=== PATIENT | female | born 1975 | race Caucasian/White ===

== ENCOUNTER 2017-12-29 14:44 | Outpatient (RCR) | payer SELFPAY | END 2018-01-06 23:59 | LOC: NS 14:44 | PROVIDERS: Family Provider Family Medicine; PCP Family Medicine | DX: R69 Illness, unspecified (principal) | CPT/HCPCS: 97802; 97803; 99201; G0463 ==

== ENCOUNTER 2018-01-12 15:38 | Outpatient (RCR) | payer SELFPAY | END 2018-02-06 23:59 | LOC: NS 15:38 | PROVIDERS: Family Provider Family Medicine; PCP Family Medicine | DX: R69 Illness, unspecified (principal) | CPT/HCPCS: 97803 ==

== ENCOUNTER 2018-02-08 12:53 | Outpatient (RCR) | payer SELFPAY | END 2018-02-08 12:54 | disposition home or self-care (01) | LOC: NS 12:53 | PROVIDERS: Family Provider Family Medicine; PCP Family Medicine | DX: R69 Illness, unspecified (principal) | CPT/HCPCS: 97803 ==

== ENCOUNTER → 2018-05-10 15:48 | Outpatient (CLI) | payer OTHER, SELFPAY ==
--- NOTE | 2018-05-10 15:51 | RAD_ITS ---
STUDY: X-RAY - LEFT ANKLE REASON FOR EXAM: Female, 43 years old. Swelling and pain following a fall. TECHNIQUE: 3 view(s) of the ankle. COMPARISON: None. FINDINGS: Normal visualized distal tibia and fibula. Normal medial and lateral malleoli. Normal tibiotalar articulation and ankle mortise. Calcaneal spurs. The visualized subtalar, talonavicular, calcaneocuboid and tarsal articulations are normal. Soft tissue swelling. RAD/Ankle min 3 Views IMPRESSION: Soft tissue swelling. No acute abnormality is seen. Electronically Signed: Dean Hernandez MD at 15:59 EDT Tel [phone], Service support ,
== END ==
PROVIDERS: Family Provider Family Medicine; PCP Family Medicine; Visit Provider Physician Assistant
DX: M25.572 Pain in left ankle and joints of left foot (principal)
CPT/HCPCS: 73610

== ENCOUNTER → 2019-02-15 14:01 | Outpatient (CLI) | payer OTHER, SELFPAY ==
[2019-02-14 15:38] VITALS: BMI 53.1
== END ==
PROVIDERS: Family Provider Family Medicine; PCP Family Medicine; Referring Provider Physician Assistant; Visit Provider Physician Assistant
DX: J02.9 Acute pharyngitis, unspecified (principal)
CPT/HCPCS: 87081

== ENCOUNTER → 2022-03-04 | Outpatient (CLI) | payer OTHER, SELFPAY | END | disposition home or self-care (01) | PROVIDERS: PCP Family Medicine; Referring Provider Physician Assistant; Visit Provider Physician Assistant | DX: R30.9 Painful micturition, unspecified (principal) | CPT/HCPCS: 87086; 87088 ==

== ENCOUNTER 2022-04-06 00:12 | Emergency (ER) | payer OTHER, SELFPAY ==
[2022-04-06 00:12] VITALS: BP 177/77; BP 177/79; PULSE 92; RESP 15; RESP 16; TEMP 36.5; O2SAT 98; O2SAT 99; BMI 49.7
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
== END 2022-04-06 01:34 | disposition home or self-care (01) ==
LOC: ED 01:26
PROVIDERS: Emergency Provider Emergency Medicine; PCP Family Medicine; Visit Provider Emergency Medicine
DX: F10.929 Alcohol use, unspecified with intoxication, unspecified (principal); G40.909 Epilepsy, unspecified, not intractable, without status epilepticus; E11.9 Type 2 diabetes mellitus without complications; I10 Essential (primary) hypertension; F32.A Depression, unspecified; Z79.84 Long term (current) use of oral hypoglycemic drugs; Z79.899 Other long term (current) drug therapy
CPT/HCPCS: 99282

== ENCOUNTER → 2022-06-26 | Outpatient (CLI) | payer OTHER, SELFPAY ==
[2022-06-26 15:30] LABS: Mucous, Urine 0 SEEN /hpf (<or=2+)
[2022-06-26 15:37] LABS: Color, Urine Yellow (Yellow); Glucose, Dipstick Normal (Normal); Ketone-Dipstick Negative (Negative); Leukocyte Esterase-Dipstick 500 /ul (Negative); Nitrite-Dipstick Negative (Negative); Occult Blood-Urine 10 /ul (Negative); Protein-Dipstick Negative (Negative); Specific Gravity, Urine 1.015 (1.002-1.030); Urine Bilirubin Dipstick Negative (Negative); Urine Clarity Sl. Cloudy (Clear); Urine Urobilinogen Normal (Normal)
[2022-06-26 15:53] LABS: Bacteria 4+ /hpf (None Seen); Red Blood Cells-Urine 0-5 SEEN /hpf (0-5); Squamous Epithelial Cells - UA 0-5 SEEN /hpf (5-10); White Blood Cells 10-25 SEEN /hpf (0-5)
[2022-06-26 15:54] LABS: Hyaline Cast 0-5 SEEN /lpf (0-5)
== END | disposition home or self-care (01) ==
LOC: LABSPEC 15:24
PROVIDERS: PCP Family Medicine; Visit Provider Physician Assistant
DX: R30.9 Painful micturition, unspecified (principal)
CPT/HCPCS: 81001; 87077; 87086; 87088; 87186

== ENCOUNTER → 2022-08-18 | Outpatient (CLI) | payer OTHER, MEDICAID, SELFPAY ==
[2022-08-18 10:27] LABS: Mucous, Urine 0 SEEN /hpf (<or=2+)
[2022-08-18 10:32] LABS: Color, Urine Yellow (Yellow); Glucose, Dipstick Normal (Normal); Ketone-Dipstick Negative (Negative); Leukocyte Esterase-Dipstick 100 /ul (Negative); Nitrite-Dipstick Negative (Negative); Occult Blood-Urine 10 /ul (Negative); Protein-Dipstick Negative (Negative); Urine Bilirubin Dipstick Negative (Negative); Urine Clarity Sl. Cloudy (Clear); Urine Urobilinogen Normal (Normal); Urine pH 6.5 (5.0 - 8.0)
[2022-08-18 11:10] LABS: Bacteria 0 SEEN /hpf (None Seen); Red Blood Cells-Urine 0-5 SEEN /hpf (0-5); Squamous Epithelial Cells - UA 5-10 SEEN /hpf (5-10); White Blood Cells 0-5 SEEN /hpf (0-5)
== END | disposition home or self-care (01) ==
LOC: LABSPEC 10:22
PROVIDERS: PCP Internal Medicine; Referring Provider Physician Assistant; Visit Provider Physician Assistant
DX: R30.9 Painful micturition, unspecified (principal)
CPT/HCPCS: 81001; 87077; 87086; 87088

== ENCOUNTER → 2022-09-16 | Outpatient (CLI) | payer OTHER, MEDICAID, SELFPAY ==
[2022-09-16 15:13] LABS: Mucous, Urine 0 SEEN /hpf (<or=2+); Red Blood Cells-Urine 0 SEEN /hpf (0-5)
[2022-09-16 15:19] LABS: Color, Urine Yellow (Yellow); Glucose, Dipstick Normal (Normal); Ketone-Dipstick Negative (Negative); Leukocyte Esterase-Dipstick 500 /ul (Negative); Nitrite-Dipstick Negative (Negative); Occult Blood-Urine 10 /ul (Negative); Protein-Dipstick Negative (Negative); Specific Gravity, Urine 1.015 (1.002-1.030); Urine Bilirubin Dipstick Negative (Negative); Urine Clarity Clear (Clear); Urine Urobilinogen Normal (Normal); Urine pH 6.5 (5.0 - 8.0)
[2022-09-16 15:41] LABS: Bacteria RARE /hpf (None Seen); Squamous Epithelial Cells - UA 0-5 SEEN /hpf (5-10); White Blood Cells 0-5 SEEN /hpf (0-5)
== END | disposition home or self-care (01) ==
LOC: LABSPEC 15:08
PROVIDERS: PCP Internal Medicine; Visit Provider Physician Assistant Surgical
DX: N39.0 Urinary tract infection, site not specified (principal)
CPT/HCPCS: 81001; 87077; 87086; 87088

== ENCOUNTER 2022-11-18 15:02 | Emergency (ER) | payer OTHER, MEDICAID, SELFPAY ==
[2022-11-18 15:02] VITALS: BP 183/104; PULSE 98; RESP 16; TEMP 36.2; O2SAT 99; BMI 34.3
--- NOTE | 2022-11-18 15:41 | RAD_ITS ---
INDICATION: Fall EXAMINATION/TECHNIQUE: X-RAY - XR Ribs Unilateral W/ PA Chest Min 3 Views COMPARISON: None. FINDINGS: SOFT TISSUES: No soft tissue swelling or gas. BONES: No displaced fracture. No sclerotic or destructive changes observed. VISUALIZED LUNGS: Clear. No pneumothorax. RAD/Ribs Uni Min 3V w/PA Chest IMPRESSION: No evidence of displaced rib fracture. Electronically Signed: Naren Vigil MD at 16:26 EST ,
--- NOTE | 2022-11-18 15:50 | EDS_ITS ---
HPI HPI - Fall History of Present Illness Chief Complaint: Fall Informant: patient Occured/Mechanism Occurred: Today Mechanism/Context: Yes trip Usually ambulates: Without assistance Pain/Injury Location: Left ribs and left knee Quality of Pain: Dull and Aching Worsened by: Certain movements Relieved by: Nothing Associated Symptoms Associated Symptoms: Negative for Parasthesias, Weakness, Loss of function, Inability to ambulate, Loss of consciousness or Amnesia Narrative Narrative: Patient presents with a fall that occurred today. Patient states she tripped and fell. Patient states she landed on her left side. Patient states she landed on the anterior aspect of her left knee and hit her left ribs. Patient describes pain as dull and aching. Patient states her pain is worse with certain movements. Patient denies any paresthesias or weakness. Patient denies any head injury or loss of consciousness. Patient was able to ambulate after the fall. Patient denies any other injuries. [facility] Medical History Acute frontal sinusitis, unspecified Diabetes Gastroenteritis HTN (hypertension) Hx of migraine headaches Migraines Seizures Urinary tract infection with hematuria UTI (urinary tract infection) Home Medications guaifenesin 100 mg/5 mL oral liquid (Diabetic Tussin EX) 200 mg (10 mL) PO Q4H PRN cough #1,500 mL 08/02/21 [Rx Last Taken Unknown] cetirizine 10 mg capsule (All Day Allergy (cetirizine)) 10 mg PO DAILY PRN 04/03/22 [History Last Taken Unknown] promethazine 12.5 mg tablet 12.5 mg PO Q6H PRN nausea and vomiting #7 tabs 07/16/22 [Rx Last Taken Unknown] carbamazepine 200 mg tablet,extended release,12 hr PO ONCE 30 days #30 tabs 07/28/22 [History Last Taken Unknown] glimepiride 4 mg tablet 4 mg PO DAILY 07/28/22 [History Last Taken Unknown] lorazepam 0.5 mg tablet 0.5 mg PO PRN 07/28/22 [History Last Taken Unknown] norethindrone (contraceptive) 0.35 mg tablet 0.35 mg PO DAILY 07/28/22 [History Last Taken Unknown] naproxen 500 mg tablet 500 mg PO BID #20 tabs 08/21/22 [Rx Last Taken Unknown] benzonatate 100 mg capsule 100 mg PO TID PRN cough #30 caps 09/10/22 [Rx Last Taken Unknown] doxycycline monohydrate 100 mg tablet 100 mg PO BID #14 tabs 09/10/22 [Rx Last Taken Unknown] rizatriptan 10 mg disintegrating tablet 10 mg PO ONCE #30 tabs 10/28/22 [Rx Last Taken Unknown] amoxicillin 500 mg capsule 1,000 mg PO BID 10 days #40 caps 11/17/22 [Rx Last Taken Unknown] Allergy/AdvReac Type Severity Reaction Status Date / Time Penicillins AdvReac Vomiting Verified 11/18/22 15:08 Family History Mother Anxiety Depression Grandfather Cancer myocardial Hypertension Diabetes Heart disease Grandmother Hypertension Heart disease Cancer Father COPD (chronic obstructive pulmonary disease) Grandmother Breast cancer Surgical History History of endometrial ablation Hx of cholecystectomy Social History household members: none housing: apartment current occupational status: employed current occupation: [employer] sexually active: Yes Smoking Status: Never smoker Electronic Cigarette Use: not used alcohol intake: former substance use type: does not use what type of physical activity do you participate in: walking frequency: 3-4 times per week seatbelt use: always do you feel safe at home: Yes additional social history: Single ROS ROS ED Constitutional Constitutional ED: Denies chills or fever(s) Eyes Eyes: Denies blurry vision or change in vision ENT ENT ED: Denies rhinorrhea or sore throat Cardiovascular Cardiovascular: Denies chest pain or palpitations Respiratory/Chest Respiratory/Chest: Denies cough or dyspnea Gastrointestinal Gastrointestinal: Denies nausea or vomiting Genitourinary Genitourinary ED: Denies dysuria or hematuria Musculoskeletal Musculoskeletal: Denies back pain or neck pain Integumentary Denies abscess or rash Neurologic Neurologic: Denies headache(s) or weakness Allergic/Immunologic Allergic/Immunologic ED: Denies mouth swelling or urticaria EXAM Physical Exam Const Vital Signs: 11/18/22 15:02 11/18/22 15:29 Temperature 97.2 F L Temperature Source Temporal Pulse Rate 98 Respiratory Rate 16 Respiratory Effort Normal Non-Labored Respiratory Depth Normal Respiratory Pattern Normal Blood Pressure 183/104 H Blood Pressure Mean 130 Pulse Ox 99 Oxygen Delivery Method Room Air Room Air Positive well nourished, well developed and obese General Appearance ED: well developed and NAD Nutritional Appearance: obese HEENT Reports normocephalic atraumatic Neck full ROM and no lymphadenopathy Chest Wall Chest Narrative: There is tenderness over the left lower ribs. There is no bony crepitance or step-off. There is no subcutaneous emphysema noted. Resp normal respiratory effort and clear to auscultation bilaterally Cardio regular rate GI non-tender and non-distended Palpation: soft Extremity Extremity Narrative: There is mild tenderness over the anterior aspect of the left knee. There is no bony crepitance or step-off. There is no effusion. There is good range of motion. There is no laxity appreciated. Neuro oriented x3, CN's II-XII intact bilaterally, moves all extremities, no focal motor deficits and no sensory deficits noted Sensorium / Orientation: alert Motor Exam: strength 5/5 throughout MDM MDM MDM Narrative Medical decision making narrative: X-rays of the left ribs were obtained. There are 5 views. On my interpretation, there is no acute fracture. There is no pneumothorax. Radiologist also interpreted the x-rays and agrees. X-rays of the left knee were obtained. There are 4 views. On my interpretation, there is no acute fracture or dislocation. There is no joint effusion. There are some degenerative changes noted. Radiologist also interpreted the x-rays and agrees. Patient was advised of her findings. Patient was instructed to use ice to the area. Patient was instructed to take Tylenol as needed for pain. Patient was instructed to follow-up with her primary care physician in 5 to 7 days. Patient understood and was agreeable with the plan. All questions were answered. Radiography Diagnostic Testing: Clinical Impression(s) from Imaging Studies Ribs w/Chest X-Ray 11/18/22 15:41 IMPRESSION: No evidence of displaced rib fracture. Electronically Signed: Naren Vigil MD at 16:26 EST Reading Location ID and State: [facility] / [place] , Service support , Knee X-Ray 11/18/22 16:05 IMPRESSION: Degenerative changes. No acute fracture or other significant bony pathology Electronically Signed: Naren Vigil MD at 16:24 EST Reading Location ID and State: [facility] / [place] , Service support , Discharge Plan Triage Chief Complaint: Fall ED Provider: Dallin Petres Dx/Rx/DC Orders Clinical Impression: Chest wall contusion, Contusion of left knee, initial encounter Instructions: ED Contusion, Lower Extremity, ED Chest Wall Contusion Prescriptions: No Action carbamazepine ER 200 mg tablet,extended release,12 hr 200 mg tablet extended release 12 hr PO ONCE 30 Days Qty: 30 Label Comments: TAKE ONE TABLET BY MOUTH DAILY guaifenesin [Diabetic Tussin EX] 100 mg/5 mL liquid 200 mg PO Q4H PRN (Reason: cough) Qty: 1500 0RF All Day Allergy (cetirizine) 10 mg capsule 10 mg PO DAILY PRN lorazepam 0.5 mg tablet 0.5 mg PO PRN Rx Instructions: TID NEEDED norethindrone (contraceptive) 0.35 mg tablet 0.35 mg PO DAILY Label Comments: TAKE 1 TABLET BY MOUTH ONCE DAILY promethazine 12.5 mg tablet 12.5 mg PO Q6H PRN (Reason: nausea and vomiting) Qty: 7 0RF glimepiride 4 mg tablet 4 mg PO DAILY naproxen 500 mg tablet 500 mg PO BID Qty: 20 0RF doxycycline monohydrate 100 mg tablet 100 mg PO BID Qty: 14 0RF benzonatate 100 mg capsule 100 mg PO TID PRN (Reason: cough) Qty: 30 0RF amoxicillin 500 mg capsule 1,000 mg PO BID 10 Days Qty: 40 0RF rizatriptan 10 mg tablet,disintegrating 10 mg PO ONCE Qty: 30 0RF Primary Care Provider: Frieda Puentes Referrals: Freida Puentes MD [Primary Care Provider] - 5-7 Days Activity Restrictions/Additional Instructions: Use ice to the area. Take Tylenol as needed for pain. Disposition Disposition: Home, Self Care
--- NOTE | 2022-11-18 16:05 | RAD_ITS ---
INDICATION: Injury/Pain EXAMINATION/TECHNIQUE: X-RAY - LEFT XR Knee Complete 4 Views or More 4 VIEWS COMPARISON: None. FINDINGS: SOFT TISSUES: No soft tissue swelling or gas. No radiopaque foreign body. BONES/JOINTS: No acute fracture or subluxation.. Normal alignment. Mildly narrowed medial femoral tibial joint space and lateral compartment of the patellofemoral joint space. .. No sclerotic or destructive changes observed. RAD/Knee 4 or More Views IMPRESSION: Degenerative changes. No acute fracture or other significant bony pathology Electronically Signed: Naren Vigil MD at 16:24 EST ,
== END 2022-11-18 16:53 | disposition home or self-care (01) ==
PROVIDERS: Emergency Provider Emergency Medicine; PCP Internal Medicine; Visit Provider Emergency Medicine
DX: S20.20XA Contusion of thorax, unspecified, initial encounter (principal); S80.02XA Contusion of left knee, initial encounter; E66.9 Obesity, unspecified; W19.XXXA Unspecified fall, initial encounter
CPT/HCPCS: 71101; 73564; 99282

== ENCOUNTER → 2022-12-30 | Outpatient (CLI) | payer OTHER, MEDICAID, SELFPAY ==
[2022-12-30 12:33] LABS: Absolute Lymphocyte Count 3.04 X10^3/uL (0.83-4.51); Absolute Neutrophil Count 4.3 X10^3/uL (2.0-7.7); Basophil# 0.02 X10^3/uL; Basophil% 0.2 % (0-1); Eosinophil# 0.33 X10^3/uL; Hematocrit 44.7 % (37-47); Hemoglobin 14.6 g/dL (12.0-15.0); Lymphocyte # 3.04 X10^3/ul (0.83-4.51); Lymphocyte % 36.5 % (19-41); Mean Corp Hgb Conc 32.7 g/dL (32-36); Mean Corpuscular Volume 94.9 fL (81-99); Mean Platelet Vol. 9.3 fl (6.2-12.0); Monocyte# 0.58 X10^3/uL; NRBC Flagged by Analyzer 0 % (0-5); Neutrophil # 4.33 X10^3/uL (2.7-7.7); Neutrophil % 52.1 % (47-70); Platelet Count 305 K/mm3 (150-450); RBC Distribution Width CV 12.8 % (11.6-14.6); RBC Distribution Width SD 44.9 fl (35.1-43.9); Red Blood Count 4.71 M/mm3 (4.2-5.4); White Blood Count 8.3 K/mm3 (4.4-11.0)
[2022-12-30 12:48] LABS: AST(SGOT) 5 U/L (15-37); Alanine Aminotransfer ALT/SGPT 17 U/L (13-56); Albumin, Serum 3.5 g/dL (3.2-5.0); Alkaline Phosphatase 143 U/L (45-117); Anion Gap 9 (5-15); BUN 13 mg/dL (7-18); BUN/Creat Ratio 17.5 RATIO (10-20); Calcium,Total 8.9 mg/dL (8.5-10.1); Chloride 104 mmol/L (98-107); Cholesterol 245 mg/dL (200); Creatinine, Serum 0.74 mg/dL (0.55-1.02); EST Glomerular Filtration Rate 89 mL/min (>60); Est Glom Filt Rate - Afr Amer 107 mL/min (>60); Globulin 3.5 g/dL (2.2-4.2); Glucose 170 mg/dL (74-106); High Density Lipoprotein 68 mg/dL; Sodium Level 140 mmol/L (136-145); Triglycerides 150 mg/dL; Very Low Density Lipoprotein 30 mg/dL (5-40)
[2022-12-30 12:50] LABS: Hemoglobin A1c 6.2 % (3.8-5.6)
== END | disposition home or self-care (01) ==
PROVIDERS: PCP Internal Medicine; Referring Provider Internal Medicine; Visit Provider Internal Medicine
DX: E11.9 Type 2 diabetes mellitus without complications (principal); G40.909 Epilepsy, unspecified, not intractable, without status epilepticus
CPT/HCPCS: 80156; 36415; 80053; 80061; 83036; 84443; 85025

== ENCOUNTER 2023-01-19 16:04 | Emergency (ER) | payer MEDICAID, SELFPAY ==
[2023-01-19 16:05] VITALS: BP 195/110; PULSE 106; RESP 14; TEMP 36.3; O2SAT 99; BMI 34.3
[2023-01-19 17:33] VITALS: BP 158/100; PULSE 93; RESP 18; O2SAT 97
--- NOTE | 2023-01-19 17:39 | EX.ED.VIS.PS ---
HPI HPI - Psych History of Present Illness Chief Complaint: Mental Health Detail of Chief Complaint: Depression Informant: patient Onset/Context/Timing Onset: Weeks Context: Gradual Onset Narrative Narrative: Patient presents with increased recent depression after her divorce was finalized 3 weeks ago. Patient states she had previously been on Wellbutrin and Ambien but stopped that about a year ago. Since her divorce is finalized she has noted increased depression with racing thoughts and difficulty sleeping. She is been eating and drinking okay. She denies suicidal homicidal ideation. She has an appointment to be seen at [facility] next week for counseling. [facility] Medical History Acute frontal sinusitis, unspecified COVID-19 Diabetes Gastroenteritis HTN (hypertension) Hx of migraine headaches Migraines Seizures Urinary tract infection with hematuria UTI (urinary tract infection) Home Medications glimepiride 4 mg tablet 4 mg PO DAILY 07/28/22 [History Last Taken Unknown] rizatriptan 10 mg disintegrating tablet 10 mg PO ONCE #30 tabs 12/23/22 [Rx Last Taken Unknown] naproxen 500 mg tablet 500 mg PO BID PRN pain #20 tabs 12/30/22 [Rx Last Taken Unknown] lorazepam 1 mg tablet (Ativan) 1 mg PO TID PRN anxiety #8 tabs 01/19/23 [Rx Last Taken Unknown] Allergy/AdvReac Type Severity Reaction Status Date / Time Penicillins AdvReac Vomiting Verified 01/19/23 16:08 Family History Mother Anxiety Depression Grandfather Cancer myocardial Hypertension Diabetes Heart disease Grandmother Hypertension Heart disease Cancer Father COPD (chronic obstructive pulmonary disease) Grandmother Breast cancer Surgical History History of endometrial ablation Hx of cholecystectomy Social History household members: none housing: apartment current occupational status: employed current occupation: [employer] sexually active: Yes Smoking Status: Never smoker Electronic Cigarette Use: not used alcohol intake: former substance use type: does not use what type of physical activity do you participate in: walking frequency: 3-4 times per week seatbelt use: always do you feel safe at home: Yes additional social history: Single ROS ROS ED Constitutional Constitutional ED: Denies chills or fever(s) Eyes Eyes: Denies change in vision or discharge from eye(s) ENT ENT ED: Denies discharge from eye(s), rhinorrhea or sore throat Cardiovascular Cardiovascular: Denies chest pain or palpitations Respiratory/Chest Respiratory/Chest: Denies cough or dyspnea Gastrointestinal Gastrointestinal: Denies abdominal pain, nausea or vomiting Musculoskeletal Musculoskeletal: Denies back pain or extremity pain Integumentary Denies Abrasions or rash Neurologic Neurologic: Reports headache(s); Denies weakness Psychiatric Psychiatric: Reports anxiety and depression; Denies suicidal ideation Allergic/Immunologic Allergic/Immunologic ED: Denies lip swelling or urticaria EXAM Physical Exam Const Vital Signs: 01/19/23 16:05 01/19/23 17:33 Temperature 97.3 F L Temperature Source Temporal Pulse Rate 106 H 93 Respiratory Rate 14 18 Blood Pressure 195/110 H 158/100 H Blood Pressure Mean 138 119 Pulse Ox 99 97 Oxygen Delivery Method Room Air Room Air Positive well nourished and well developed General Appearance ED: well developed HEENT Reports normocephalic and head/scalp atraumatic Eyes PERRL and EOMs intact bilaterally Neck supple Chest Wall inspection of chest normal and palpation of chest normal Resp normal respiratory effort and clear to auscultation bilaterally Cardio regular rate and regular rhythm GI normal to inspection, nondistended, normoactive bowel sounds Palpation: soft Extremity normal to inspection Neuro oriented x3 and no sensory deficits noted Sensorium / Orientation: alert Motor Exam: strength 5/5 throughout Psych cooperative Attitude: calm Speech: soft Mood & Affect: flat affect Skin no rashes or lesions noted MDM MDM MDM Narrative Medical decision making narrative: transfer and line up worker spoke with the patient. She referred the patient to the IOP program. I will write the patient a short prescription for Ativan to help with anxiety and sleep. She has an appointment with her PCP in 2 days and an appointment with 180 next week. I did explain to her that typically we do not start antidepressants in the emergency room as we do not have appropriate follow-up the next several weeks. She voices understanding and agreement. Discharge Plan Triage Chief Complaint: Mental Health ED Provider: Chantel Alba Dx/Rx/DC Orders Clinical Impression: Depression Instructions: ED Depression Prescriptions: New lorazepam [Ativan] 1 mg tablet 1 mg PO TID PRN (Reason: anxiety) Qty: 8 0RF No Action glimepiride 4 mg tablet 4 mg PO DAILY naproxen 500 mg tablet 500 mg PO BID PRN (Reason: pain) Qty: 20 0RF rizatriptan 10 mg tablet,disintegrating 10 mg PO ONCE Qty: 30 0RF Primary Care Provider: Freida Puentes Referrals: Freida Puentes MD [Primary Care Provider] - [facility] appointment Disposition Disposition: Home, Self Care
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
== END 2023-01-19 18:45 | disposition home or self-care (01) ==
PROVIDERS: Emergency Provider Emergency Medicine; PCP Internal Medicine; Visit Provider Emergency Medicine
DX: F32.A Depression, unspecified (principal); E11.9 Type 2 diabetes mellitus without complications; Z86.16 Personal history of COVID-19; Z79.84 Long term (current) use of oral hypoglycemic drugs
CPT/HCPCS: 99282

== ENCOUNTER → 2023-05-08 | Outpatient (CLI) | payer MEDICAID, SELFPAY ==
[2023-05-08 17:40] LABS: Mucous, Urine 0 SEEN /hpf (<or=2+); Red Blood Cells-Urine 0 SEEN /hpf (0-5)
[2023-05-08 17:47] LABS: Color, Urine Yellow (Yellow); Glucose, Dipstick Normal (Normal); Ketone-Dipstick Negative (Negative); Leukocyte Esterase-Dipstick 100 /ul (Negative); Nitrite-Dipstick Positive (Negative); Occult Blood-Urine Negative /ul (Negative); Protein-Dipstick 15 mg/dl (Negative); Specific Gravity, Urine 1.025 (1.002-1.030); Urine Bilirubin Dipstick Negative (Negative); Urine Clarity Clear (Clear); Urine Urobilinogen Normal (Normal)
[2023-05-08 17:59] LABS: Bacteria 1+ /hpf (None Seen); Squamous Epithelial Cells - UA 0-5 SEEN /hpf (5-10); White Blood Cells 0-5 SEEN /hpf (0-5)
== END | disposition home or self-care (01) ==
PROVIDERS: PCP Internal Medicine; Visit Provider Physician Assistant Surgical
DX: R30.0 Dysuria (principal)
CPT/HCPCS: 81001; 87077; 87086; 87088; 87186

== ENCOUNTER → 2023-07-31 | Outpatient (CLI) | payer MEDICAID, SELFPAY ==
[2023-07-31 17:56] LABS: Mucous, Urine 0 SEEN /hpf (<or=2+)
[2023-07-31 18:45] LABS: Color, Urine Yellow (Yellow); Glucose, Dipstick Normal (Normal); Ketone-Dipstick Negative (Negative); Leukocyte Esterase-Dipstick 25 /ul (Negative); Nitrite-Dipstick Negative (Negative); Occult Blood-Urine 50 /ul (Negative); Protein-Dipstick 30 mg/dl (Negative); Urine Bilirubin Dipstick Negative (Negative); Urine Clarity Sl. Cloudy (Clear); Urine Urobilinogen Normal (Normal)
[2023-07-31 19:40] LABS: Red Blood Cells-Urine 0-5 SEEN /hpf (0-5); Squamous Epithelial Cells - UA 25-50 SEEN /hpf (5-10); White Blood Cells 0-5 SEEN /hpf (0-5)
[2023-07-31 19:41] LABS: Amorphous Sediment 1+ URATE; Bacteria RARE /hpf (None Seen)
== END | disposition home or self-care (01) ==
PROVIDERS: PCP Internal Medicine; Visit Provider Physician Assistant Surgical
DX: R30.0 Dysuria (principal)
CPT/HCPCS: 81001; 87086; 87088

== ENCOUNTER 2024-06-02 12:20 | Emergency (ER) | payer MEDICAID, SELFPAY ==
[2024-06-02 12:21] VITALS: BP 143/73; PULSE 86; RESP 16; TEMP 35.9; O2SAT 96; BMI 46.6
--- NOTE | 2024-06-02 12:51 | EDS_ITS ---
HPI History of Present Illness Chief Complaint: General Illness Informant: patient Narrative Narrative: 49-year-old female states for the last couple days she has felt poorly. She has felt a little short of breath. She denies a cough or other respiratory symptom s. She denies any chest pain or palpitations. She states she started with having nausea and vomiting, no blood, no diarrhea, no abdominal pain until today when she has noticed soreness in her upper abdomen. She also is having myalgias with the most prominent achiness being in her thighs bilaterally and symmetrically. No edema. She has had some mild headaches. 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 She states she has not worked for tens of years. [facility] Medical History COVID-19 UTI (urinary tract infection) Hx of migraine headaches Gastroenteritis Urinary tract infection with hematuria Acute frontal sinusitis, unspecified Seizures Migraines Diabetes HTN (hypertension) Home Medications ?Medication ?Instructions ?Recorded ?Last Taken ?Type glimepiride 4 mg tablet 4 mg PO DAILY 07/28/22 Unknown History rizatriptan 10 mg disintegrating 10 mg PO ONCE #30 tabs 12/23/22 Unknown Rx tablet naproxen 500 mg tablet 500 mg PO BID PRN pain #20 tabs 12/30/22 Unknown Rx lisinopril 5 mg tablet 5 mg PO DAILY #30 tabs 01/21/23 Unknown Rx vortioxetine 5 mg tablet 5 mg PO DAILY #30 tabs 01/21/23 Unknown Rx (Trintellix) zolpidem 5 mg tablet (Ambien) 5 mg PO QHS PRN sleep #2 tabs 01/21/23 Unknown Rx benzonatate 100 mg capsule 200 mg (2 x 100 mg) PO TID PRN 01/23/23 Unknown Rx cough #30 caps bupropion HCl 150 mg 24 hr tablet, 150 mg PO DAILY 01/23/23 Unknown History extended release carbamazepine 200 mg 200 mg PO ONCE 30 days #30 tabs 02/05/23 Unknown Rx tablet,extended release,12 hr PE-acetaminop/[id number] See Rx Instructions PO .COMPLEX PRN 03/03/23 Unknown History 5-325 mg(dy)/6.25-5-325 mg(nt)capsules (Vicks DayQuil-NyQuil Sinex) triamcinolone acetonide 55 mcg 2 spray intranasal DAILY #16.9 mL 03/03/23 Unknown Rx nasal spray aerosol (Nasacort Allergy) cetirizine 10 mg tablet (Zyrtec) 10 mg PO DAILY PRN allergy 05/08/23 Unknown Rx symptoms #30 tabs fexofenadine 60 mg tablet (Keli 60 mg PO Q12H PRN allergy symptoms 05/08/23 Unknown Rx Allergy) #60 tabs loratadine 10 mg tablet (Allergy 10 mg PO DAILY PRN allergy 05/08/23 Unknown Rx Relief (loratadine)) symptoms #30 tabs ondansetron HCl 8 mg tablet 8 mg PO Q8H PRN nausea and 06/02/24 Unknown Rx vomiting #20 tabs Allergy/AdvReac Type Severity Reaction Status Date / Time Penicillins AdvReac Vomiting Verified 06/02/24 12:22 Family History Mother Anxiety Depression Grandfather Cancer myocardial Hypertension Diabetes Heart disease Grandmother Hypertension Heart disease Cancer Father COPD (chronic obstructive pulmonary disease) Grandmother Breast cancer Surgical History History of endometrial ablation Hx of cholecystectomy Social History household members: none housing: apartment current occupational status: employed current occupation: [employer] sexually active: Yes Smoking Status: Never smoker Electronic Cigarette Use: not used alcohol intake: former substance use type: does not use what type of physical activity do you participate in: walking frequency: 3-4 times per week seatbelt use: always do you feel safe at home: Yes additional social history: Single ROS ROS ED Constitutional Constitutional ED: Reports fatigue and malaise; Denies chills or fever(s) Eyes Eyes: Denies change in vision or diplopia ENT ENT ED: Denies rhinorrhea or sore throat Cardiovascular Cardiovascular: Denies chest pain or palpitations Respiratory/Chest Respiratory/Chest: Reports dyspnea; Denies cough Gastrointestinal Gastrointestinal: Reports abdominal pain, nausea and vomiting; Denies diarrhea Genitourinary Genitourinary ED: Denies dysuria or hematuria Musculoskeletal Musculoskeletal: Reports myalgias; Denies back pain or neck pain Integumentary Denies abscess or rash Neurologic Neurologic: Reports headache(s); Denies paresthesias or weakness Psychiatric Psychiatric: Denies suicidal thoughts EXAM Physical Exam Const Vital Signs: 06/02/24 12:21 Temperature 96.7 F L Temperature Source Temporal Pulse Rate 86 Respiratory Rate 16 Blood Pressure 143/73 H Blood Pressure Mean 96 Pulse Ox 96 Oxygen Delivery Method Room Air Positive well nourished, well developed and obese General Appearance ED: well developed and NAD Nutritional Appearance: obese HEENT Reports moist mucous membranes normocephalic and atraumatic Eyes PERRL and EOMs intact bilaterally Neck full ROM and supple Resp normal respiratory effort and clear to auscultation bilaterally Cardio regular rate, regular rhythm and no murmurs GI non-distended GI Narrative: Mild diffuse upper abdominal tenderness without guarding or rebound. Otherwise benign abdomen. Auscultation: normoactive bowel sounds Palpation: soft Back/Spine no CVA tenderness General Back: other FROM Extremity normal to inspection General Extremety ED: Negative for edema, pulses abnormal or tenderness General Extremity: Negative for edema or pulses abnormal Neuro oriented x3, CN's II-XII intact bilaterally and no sensory deficits noted Sensorium / Orientation: awake and alert Motor Exam: strength 5/5 throughout Psych Mood & Affect: anxious Skin no rashes or lesions noted and no wounds MDM MDM MDM Narrative Medical decision making narrative: I advised patient sound like she has an illness, likely viral given the nature of her symptoms, with headaches and myalgias and malaise. I offered a plethora of testing, none of which she wants. This includes her GI labs, IV fluids and medications for her symptoms, viral swabs, we have COVID/influenza/RSV swab but we cannot test for any of those individually. She states she refuses it because of the COVID and she does not want to be tested for COVID. She is adamant that she does not want any needles because she feels like that is going to make her worse, with regards to diagnostics or treatment. In the end she states she refuses all testing, she is not having urinary symptoms so I do not think we need to check that, and she just wants something for nausea and a work note for tomorrow and she states she will follow-up with her doctor if it does not get better. Discharge Plan Triage Chief Complaint: General Illness ED Provider: Rehtt Jean Dx/Rx/DC Orders Clinical Impression: Acute gastritis without bleeding, Acute viral syndrome Instructions: ED Gastritis (Adult), ED Viral Syndrome (Adult) Prescriptions: Continued glimepiride 4 mg tablet 4 mg PO DAILY naproxen 500 mg tablet 500 mg PO BID PRN (Reason: pain) Qty: 20 0RF Trintellix 5 mg tablet 5 mg PO DAILY Qty: 30 0RF zolpidem [Ambien] 5 mg tablet 5 mg PO QHS PRN (Reason: sleep) Qty: 2 0RF lisinopril 5 mg tablet 5 mg PO DAILY Qty: 30 0RF bupropion HCl 150 mg tablet extended release 24 hr 150 mg PO DAILY benzonatate 100 mg capsule 200 mg PO TID PRN (Reason: cough) Qty: 30 0RF Vicks DayQuil-NyQuil Sinex 5-325mg(d)/6.25 -5 mg-325mg(nt) capsule, sequential See Rx Instructions PO .COMPLEX PRN Rx Instructions: As directed orally PRN; triamcinolone acetonide [Nasacort Allergy] 55 mcg aerosol,spray 2 spray intranasal DAILY Qty: 16.9 0RF Rx Instructions: administer into each nostril fexofenadine [Keli Allergy] 60 mg tablet 60 mg PO Q12H PRN (Reason: allergy symptoms) Qty: 60 0RF cetirizine [Zyrtec] 10 mg tablet 10 mg PO DAILY PRN (Reason: allergy symptoms) Qty: 30 0RF loratadine [Allergy Relief (loratadine)] 10 mg tablet 10 mg PO DAILY PRN (Reason: allergy symptoms) Qty: 30 0RF ondansetron HCl 8 mg tablet 8 mg PO Q8H PRN (Reason: nausea and vomiting) Qty: 20 0RF rizatriptan 10 mg tablet,disintegrating 10 mg PO ONCE Qty: 30 0RF carbamazepine 200 mg tablet extended release 12 hr 200 mg PO ONCE 30 Days Qty: 30 0RF Stand Alone Forms: ED Work / School Excuse Primary Care Provider: Floresita Alvarez NP Referrals: Freida Puentes MD [Med Staff - Active Staff] - 3-5 Days if not improving Print Language: Turkmen Disposition Disposition: Home, Self Care
[2024-06-02] MEDS: Ondansetron ODT 4 MG Tablet 8 MG PO (13:01)
[2024-06-02 13:07] VITALS: BP 132/72; PULSE 80; RESP 16; TEMP 36.3; O2SAT 98
== END 2024-06-02 13:08 | disposition home or self-care (01) ==
LOC: ED 12:57
PROVIDERS: Emergency Provider Emergency Medicine; PCP Nurse Practitioner Family; Visit Provider Emergency Medicine
DX: K29.00 Acute gastritis without bleeding (principal); Z68.42 Body mass index [BMI] 45.0-49.9, adult; E11.9 Type 2 diabetes mellitus without complications; B34.9 Viral infection, unspecified; I10 Essential (primary) hypertension; E66.9 Obesity, unspecified; Z79.84 Long term (current) use of oral hypoglycemic drugs; Z79.899 Other long term (current) drug therapy; Z86.16 Personal history of COVID-19
CPT/HCPCS: 99282

== ENCOUNTER 2024-07-04 10:57 | Emergency (ER) | payer MEDICAID, SELFPAY ==
[2024-07-04 10:58] VITALS: BP 129/88; PULSE 79; RESP 18; TEMP 36.3; O2SAT 99; BMI 45.8
[2024-07-04 15:17] VITALS: BP 130/88; PULSE 81; RESP 16; TEMP 36.3; O2SAT 98
--- NOTE | 2024-07-04 16:07 | EX.ED.DYSGE1 ---
HPI History of Present Illness Chief Complaint: Cold Sx Informant: patient Narrative Narrative: 49-year-old female presenting to the emergency room out of concerns for infection. Patient states yesterday she began to not feel well. She notes a very slight cough. She notes generalized weakness nausea. No diarrhea. No rashes. No significant rhinorrhea or ear pain. States she has been around numerous people who have had COVID. No reported fevers but at times feels very warm and at times chilled. PFSH [facility] Medical History COVID-19 UTI (urinary tract infection) Hx of migraine headaches Gastroenteritis Urinary tract infection with hematuria Acute frontal sinusitis, unspecified Seizures Migraines Diabetes HTN (hypertension) Home Medications ?Medication ?Instructions ?Recorded ?Last Taken ?Type glimepiride 4 mg tablet 4 mg PO DAILY 07/28/22 Unknown History rizatriptan 10 mg disintegrating 10 mg PO ONCE #30 tabs 12/23/22 Unknown Rx tablet naproxen 500 mg tablet 500 mg PO BID PRN pain #20 tabs 12/30/22 Unknown Rx lisinopril 5 mg tablet 5 mg PO DAILY #30 tabs 01/21/23 Unknown Rx vortioxetine 5 mg tablet 5 mg PO DAILY #30 tabs 01/21/23 Unknown Rx (Trintellix) benzonatate 100 mg capsule 200 mg (2 x 100 mg) PO TID PRN 01/23/23 Unknown Rx cough #30 caps bupropion HCl 150 mg 24 hr tablet, 150 mg PO DAILY 01/23/23 Unknown History extended release carbamazepine 200 mg 200 mg PO ONCE 30 days #30 tabs 02/05/23 Unknown Rx tablet,extended release,12 hr cetirizine 10 mg tablet (Zyrtec) 10 mg PO DAILY PRN allergy 05/08/23 Unknown Rx symptoms #30 tabs ondansetron HCl 8 mg tablet 8 mg PO Q8H PRN nausea and 06/02/24 Unknown Rx vomiting #20 tabs ondansetron 4 mg disintegrating 4 mg PO Q6H PRN PRN Nausea #10 tabs 07/04/24 Unknown Rx tablet zolpidem 5 mg tablet (Ambien) 5 mg PO DAILY sleep 07/04/24 Unknown History Allergy/AdvReac Type Severity Reaction Status Date / Time Penicillins AdvReac Vomiting Verified 07/04/24 10:58 Family History Mother Anxiety Depression Grandfather Cancer myocardial Hypertension Diabetes Heart disease Grandmother Hypertension Heart disease Cancer Father COPD (chronic obstructive pulmonary disease) Grandmother Breast cancer Surgical History Hx of cholecystectomy History of endometrial ablation Social History household members: none housing: apartment current occupational status: employed current occupation: [employer] sexually active: Yes Smoking Status: Never smoker Electronic Cigarette Use: not used alcohol intake: former substance use type: does not use what type of physical activity do you participate in: walking frequency: 3-4 times per week seatbelt use: always do you feel safe at home: Yes additional social history: Single ROS ROS ED Constitutional Constitutional ED: Reports chills, fever(s) and subjective; Denies weight loss Eyes Eyes: Denies change in vision or diplopia ENT ENT ED: Denies ear pain, rhinorrhea or sore throat Cardiovascular Cardiovascular: Denies chest pain, orthopnea, palpitations or racing heartbeat Respiratory/Chest Respiratory/Chest: Reports cough; Denies dyspnea or orthopnea Gastrointestinal Gastrointestinal: Reports nausea; Denies abdominal pain, diarrhea or vomiting Genitourinary Genitourinary ED: Denies dysuria, hematuria or urinary frequency Musculoskeletal Musculoskeletal: Reports myalgias; Denies arthralgias or neck pain Integumentary Denies abscess or rash Neurologic Neurologic: Denies headache(s) or weakness Psychiatric Psychiatric: Denies anxiety, depression, suicidal ideation or suicidal thoughts Endocrine Endocrinology: Denies polydipsia, polyphagia or polyuria Allergic/Immunologic Allergic/Immunologic ED: Denies mouth swelling, tongue swelling or urticaria EXAM Physical Exam Const Vital Signs: 07/04/24 10:58 07/04/24 14:23 07/04/24 15:17 Temperature 97.4 F L Temperature Source Temporal Pulse Rate 79 81 Respiratory Rate 18 16 Respiratory Pattern Normal Blood Pressure 129/88 H Blood Pressure Mean 101 Pulse Ox 99 98 Oxygen Delivery Method Room Air 07/04/24 15:17 Temperature 97.4 F L Temperature Source Pulse Rate 81 Respiratory Rate 16 Respiratory Pattern Blood Pressure 130/88 H Blood Pressure Mean 102 Pulse Ox 98 Oxygen Delivery Method Positive well nourished and well developed General Appearance ED: well developed HEENT Reports normocephalic, head/scalp atraumatic and moist mucous membranes Eyes PERRL and EOMs intact bilaterally Neck no lymphadenopathy, supple and no JVD Resp normal respiratory effort and clear to auscultation bilaterally Cardio regular rate, regular rhythm and no murmurs GI normal to inspection, nondistended, normoactive bowel sounds and non-tender Palpation: soft Back/Spine no CVA tenderness and normal ROM Extremity normal to inspection General Extremety ED: Negative for edema General Extremity: Negative for edema Neuro oriented x3 and CN's II-XII intact bilaterally Sensorium / Orientation: alert Motor Exam: strength 5/5 throughout Psych mental status grossly normal Mood & Affect: Negative for depressed or tearful Skin no rashes or lesions noted and no wounds MDM MDM MDM Narrative Medical decision making narrative: Differential diagnosis includes viral syndrome (COVID influenza RSV etc.) bronchitis pneumonia gastroenteritis Patient clinically appears well. Her exam is benign. She is afebrile. COVID influenza and RSV swabs were negative. I think the patient can be discharged home with supportive care. Would recommend oral hydration Zofran as needed and rest. Follow-up with primary care if not improving return if worsening or concerns History & Record Review Discussion w/independent historian: Patient Discharge Plan Triage Chief Complaint: Cold Sx ED Provider: Mervin Bauman Dx/Rx/DC Orders Clinical Impression: Acute viral syndrome, Nausea Instructions: ED Viral Syndrome (Adult) Prescriptions: New ondansetron 4 mg tablet,disintegrating 4 mg PO Q6H PRN PRN (Reason: Nausea) Qty: 10 0RF No Action glimepiride 4 mg tablet 4 mg PO DAILY naproxen 500 mg tablet 500 mg PO BID PRN (Reason: pain) Qty: 20 0RF Trintellix 5 mg tablet 5 mg PO DAILY Qty: 30 0RF lisinopril 5 mg tablet 5 mg PO DAILY Qty: 30 0RF bupropion HCl 150 mg tablet extended release 24 hr 150 mg PO DAILY benzonatate 100 mg capsule 200 mg PO TID PRN (Reason: cough) Qty: 30 0RF cetirizine [Zyrtec] 10 mg tablet 10 mg PO DAILY PRN (Reason: allergy symptoms) Qty: 30 0RF zolpidem [Ambien] 5 mg tablet 5 mg PO DAILY ondansetron HCl 8 mg tablet 8 mg PO Q8H PRN (Reason: nausea and vomiting) Qty: 20 0RF rizatriptan 10 mg tablet,disintegrating 10 mg PO ONCE Qty: 30 0RF carbamazepine 200 mg tablet extended release 12 hr 200 mg PO ONCE 30 Days Qty: 30 0RF Primary Care Provider: Floresita Alvarez NP Referrals: Floresita Alvarez NP, CONTINUOUS MINING MACHINE OPERATOR-C [Primary Care Provider] - As Needed Print Language: Luxembourger Disposition Disposition: Home, Self Care Discharge Date/Time: 07/04/24 15:18
== END 2024-07-04 15:18 | disposition home or self-care (01) ==
PROVIDERS: Emergency Provider Emergency Medicine; PCP Nurse Practitioner Family; Visit Provider Emergency Medicine
DX: B34.9 Viral infection, unspecified (principal); E11.9 Type 2 diabetes mellitus without complications; R11.0 Nausea; I10 Essential (primary) hypertension; Z20.828 Contact with and (suspected) exposure to other viral communicable diseases; Z79.84 Long term (current) use of oral hypoglycemic drugs; Z79.899 Other long term (current) drug therapy; Z86.16 Personal history of COVID-19
CPT/HCPCS: 87631; 99282

== ENCOUNTER 2024-10-18 08:20 | Emergency (ER) | payer MEDICAID, SELFPAY ==
[2024-10-18] VITALS (7 sets, daily range): BP systolic 97–134; BP diastolic 53–80; PULSE 67–89; RESP 14–16; TEMP 36.3–36.7; O2SAT 98–100; BMI 42.7
--- NOTE | 2024-10-18 08:34 | EKG12_ITS ---
Test Reason : SYNCOPE Blood Pressure : */* mmHG Vent. Rate : 94 BPM Atrial Rate : 94 BPM P-R Int : 128 ms QRS Dur : 74 ms QT Int : 352 ms P-R-T Axes : -2 48 77 degrees QTcB Int : 440 ms Normal sinus rhythm Normal ECG Confirmed by SOBIA KEMP, CRYSTAL ([id number]), editor continuity and script GURINDER COELHO ([id number]) on 10/19/2024 11:40:02 AM Referred By: Confirmed By: CRYSTAL RAMSAY MD
[2024-10-18 08:40] LABS: Absolute Lymphocyte Count 3.02 X10^3/uL (0.83-4.51); Basophil# 0.02 X10^3/uL; Basophil% 0.2 % (0-1); Eosinophil# 0.07 X10^3/uL; Eosinophils% 0.7 % (0-5); Hematocrit 42.6 % (37-47); Hemoglobin 14.2 g/dL (12.0-15.0); Lymphocyte # 3.02 X10^3/ul (0.83-4.51); Mean Corp Hgb Conc 33.3 g/dL (32-36); Mean Corpuscular Hgb 29.9 pg (27.0-32.0); Mean Corpuscular Volume 89.7 fL (81-99); Mean Platelet Vol. 8.8 fl (6.2-12.0); Monocyte# 0.54 X10^3/uL; Monocyte% 5.5 % (0-10); NRBC Flagged by Analyzer 0 % (0-5); Neutrophil # 6.04 X10^3/uL (2.7-7.7); Neutrophil % 62.2 % (47-70); Platelet Count 329 K/mm3 (150-450); RBC Distribution Width CV 16.4 % (11.6-14.6); RBC Distribution Width SD 53.9 fl (35.1-43.9); Red Blood Count 4.75 M/mm3 (4.2-5.4); White Blood Count 9.7 K/mm3 (4.4-11.0)
--- NOTE | 2024-10-18 08:48 | EX.ED.DYSGE1 ---
HPI History of Present Illness Chief Complaint: Syncope Detail of Chief Complaint: Syncope/near syncope without loss of postural tone Informant: patient Onset/Context/Timing Onset: Days (Approximately 1 week.) Context: Sudden Onset Timing: Intermittent Quality: Last less than 30 seconds. Location: Not applicable Current Severity: Gone Maximum Severity: Moderate Worsened by: Nothing specific Relieved by: Nothing Associated Symptoms Associated Symptoms: Vision goes black, diaphoresis, pallor and orthostatic lightheadedness Narrative Narrative: Patient is a 49-year-old woman. She has history of anxiety and depression, seizure disorder, and type 2 diabetes. Based on medication she also has history of hypertension. She presents from work because of lightheadedness. This occurred while she was standing. She had 2 episodes yesterday. No episodes on Thursday. She has had 1-2 episodes for the past week. He states she has been under significant stress. Her grandmother on October 11 and she and her significant other broke up October 12. Patient states symptoms started prior to her grandmother dying. She denies recent nausea vomiting. Over a week ago she had nausea and vomiting for 1 day. She denied diarrhea. She denies black or maroon-colored stool. She denies fever, chills night sweats. She denies headache. She complains of vision becoming black when these episodes occur that last seconds to 30 seconds. She denies ringing or ears or decreased hearing. She has trouble with speech or swallowing. She has had no seizure activity. There is been no incontinence of urine or stool. Patient states she saw her doctor recently and all her blood work was normal. She does not recall her last A1c level. She states she has been diabetic for some time. She denies leg pain, swelling discoloration or history of VTE. Prior similar symptoms: No Recent Illness/Hospitalization: Yes [facility] Medical History COVID-19 UTI (urinary tract infection) Hx of migraine headaches Gastroenteritis Urinary tract infection with hematuria Acute frontal sinusitis, unspecified Seizures Migraines Diabetes HTN (hypertension) Home Medications ?Medication ?Instructions ?Recorded ?Last Taken ?Type glimepiride 4 mg tablet 4 mg PO DAILY 07/28/22 Unknown History rizatriptan 10 mg disintegrating 10 mg PO ONCE #30 tabs 12/23/22 Unknown Rx tablet naproxen 500 mg tablet 500 mg PO BID PRN pain #20 tabs 12/30/22 Unknown Rx lisinopril 5 mg tablet 5 mg PO DAILY #30 tabs 01/21/23 Unknown Rx vortioxetine 5 mg tablet 5 mg PO DAILY #30 tabs 01/21/23 Unknown Rx (Trintellix) benzonatate 100 mg capsule 200 mg (2 x 100 mg) PO TID PRN 01/23/23 Unknown Rx cough #30 caps bupropion HCl 150 mg 24 hr tablet, 150 mg PO DAILY 01/23/23 Unknown History extended release carbamazepine 200 mg 200 mg PO ONCE 30 days #30 tabs 02/05/23 Unknown Rx tablet,extended release,12 hr cetirizine 10 mg tablet (Zyrtec) 10 mg PO DAILY PRN allergy 05/08/23 Unknown Rx symptoms #30 tabs ondansetron HCl 8 mg tablet 8 mg PO Q8H PRN nausea and 06/02/24 Unknown Rx vomiting #20 tabs ondansetron 4 mg disintegrating 4 mg PO Q6H PRN PRN Nausea #10 tabs 07/04/24 Unknown Rx tablet zolpidem 5 mg tablet (Ambien) 5 mg PO DAILY sleep 07/04/24 Unknown History Allergy/AdvReac Type Severity Reaction Status Date / Time Penicillins AdvReac Vomiting Verified 10/18/24 08:33 Family History Mother Anxiety Depression Grandfather Cancer myocardial Hypertension Diabetes Heart disease Grandmother Hypertension Heart disease Cancer Father COPD (chronic obstructive pulmonary disease) Grandmother Breast cancer Surgical History Hx of cholecystectomy History of endometrial ablation Social History household members: none housing: apartment current occupational status: employed current occupation: [employer] sexually active: Yes Smoking Status: Never smoker Electronic Cigarette Use: not used alcohol intake: former substance use type: does not use what type of physical activity do you participate in: walking frequency: 3-4 times per week seatbelt use: always do you feel safe at home: Yes additional social history: Single ROS ROS ED Constitutional Constitutional ED: Denies chills, fever(s), subjective, sweats or weight loss Eyes Eyes: Reports other Details: Per HPI narrative ; Denies blurry vision, change in vision or diplopia ENT ENT ED: Denies ear pain, rhinorrhea or sore throat Cardiovascular Cardiovascular: Denies chest pain, palpitations or racing heartbeat Respiratory/Chest Respiratory/Chest: Denies cough, dyspnea or dyspnea on exertion Gastrointestinal Gastrointestinal: Denies abdominal pain, constipation, diarrhea, melena, nausea or vomiting Genitourinary Genitourinary ED: Denies dysuria, hematuria or urinary frequency Musculoskeletal Musculoskeletal: Denies back pain or neck pain Integumentary Denies rash Neurologic Neurologic: Denies headache(s), paresthesias or weakness Psychiatric Psychiatric: Reports depression Endocrine Endocrinology: Denies cold intolerance or heat intolerance Hematologic/Lymphatic Hematologic/Lymphatic: Reports systems reviewed and no addt'l complaints, except as documented EXAM Physical Exam Const Vital Signs: 10/18/24 08:20 10/18/24 08:32 10/18/24 08:35 Temperature 97.3 F L Temperature Source Temporal Pulse Rate 87 Pulse Rate [Lying] 71 Pulse Rate [Sitting (for 1 minute prior to obtaining)] 84 Pulse Rate [Standing (for 1 minute prior to obtaining)] Respiratory Rate 14 Respiratory Effort Normal Respiratory Pattern Normal Blood Pressure 120/80 Blood Pressure [Lying] 103/53 L Blood Pressure [Sitting (for 1 minute prior to obtaining)] 97/66 Blood Pressure [Standing (for 1 minute prior to obtaining)] Blood Pressure Mean 93 Blood Pressure Mean [Lying] 69 Blood Pressure Mean [Sitting (for 1 minute prior to obtaining)] 76 Blood Pressure Mean [Standing (for 1 minute prior to obtaining)] Pulse Ox 98 Oxygen Delivery Method Room Air 10/18/24 10:20 10/18/24 12:00 10/18/24 12:30 Temperature Temperature Source Pulse Rate 72 72 Pulse Rate [Lying] 88 Pulse Rate [Sitting (for 1 minute prior to obtaining)] 89 Pulse Rate [Standing (for 1 minute prior to obtaining)] 74 Respiratory Rate 16 16 Respiratory Effort Respiratory Pattern Blood Pressure 98/65 133/76 H Blood Pressure [Lying] 104/77 Blood Pressure [Sitting (for 1 minute prior to obtaining)] 124/78 H Blood Pressure [Standing (for 1 minute prior to obtaining)] 134/71 H Blood Pressure Mean 76 95 Blood Pressure Mean [Lying] 86 Blood Pressure Mean [Sitting (for 1 minute prior to obtaining)] 93 Blood Pressure Mean [Standing (for 1 minute prior to obtaining)] 92 Pulse Ox 98 100 Oxygen Delivery Method Room Air Room Air Patient was not symptomatic when orthostatic vitals were repeated after 1 L. Positive well nourished and well developed Constitutional Narrative: There was essentially no eye contact during history and physical. Patient's BMI is 42.8. General Appearance ED: well developed, NAD and pallor; Negative for cyanotic or diaphoretic HEENT Reports moist mucous membranes HEENT Narrative: Head is atraumatic and normocephalic. Ears are normal. Nares patent. Posterior pharynx is normal. Eyes PERRL and EOMs intact bilaterally Eyes Narrative: There is no nystagmus. General Eye ED: Negative for pale conjunctiva or scleral icterus Neck no lymphadenopathy, supple and no JVD Chest Wall inspection of chest normal and palpation of chest normal Resp normal respiratory effort and clear to auscultation bilaterally Cardio regular rate, regular rhythm, S1 normal heart sound, S2 normal heart sound and no murmurs GI normal to inspection, nondistended, normoactive bowel sounds, non-tender, non-distended and no masses; Negative for hepatosplenomegaly Extremity normal to inspection Extremity Narrative: There is no asymmetry, swelling, discoloration, leg vein distention, palpable cords or tenderness along the distribution of the deep venous system. Neuro oriented x3, CN's II-XII intact bilaterally and no sensory deficits noted Sensorium / Orientation: alert Psych Mood & Affect: depressed Skin no rashes or lesions noted, no wounds and skin turgor normal General Skin Exam: pallor; Negative for elasticity normal or jaundice MDM MDM MDM Narrative Medical decision making narrative: Differential diagnosis would include orthostatic hypotension due to hypovolemia, autonomic dysfunction due to diabetes, stress, cardiac dysrhythmia, PE is not considered since patient is PERC negative and Wells score is less than 3. There is no concern for DVT based on exam and Wells score of -2. CBC was obtained to assess white count as well as H&H. Comprehensive metabolic panel to assess electrolytes. EKG to determine if there are any ischemic changes. She was placed on the monitor to evaluate any dysrhythmia. History & Record Review Additional record(s) reviewed:: Prior ED visit (May 2024 for acute gastritis, July 2023 for UTI as well as May 08, 2023. Patient was seen in January 2023 for gastroenteritis. Also seen in 2022 for essential hypertension.) and Prior labs (Only prior labs dating back to April 2023 were urinalysis. Prior electrolyte panel December 2022 was remarkable for elevated cholesterol and glucose. Calcium was low at 6.2.) Lab Data Attestation: I reviewed the patient's lab results. Lab results narrative: CBC is unremarkable. Basic metabolic panel is remarked for glucose of 161 with a normal CO2 anion gap. Electrolytes are normal. Renal function is normal. Troponin was less than 3. With symptoms that started several days ago a second troponin is not needed. Labs: Laboratory Results - last 24 hr 10/18/24 08:34 WBC 9.7 RBC 4.75 Hgb 14.2 Hct 42.6 MCV 89.7 MCH 29.9 MCHC 33.3 RDW Std Deviation 53.9 H RDW Coeff of Kenna 16.4 H Plt Count 329 MPV 8.8 Immature Gran % (Auto) 0.400 Neut % (Auto) 62.2 Lymph % (Auto) 31.0 [place] % (Auto) 5.5 Eos % (Auto) 0.7 Baso % (Auto) 0.2 Absolute Neuts (auto) 6.0 Absolute Lymphs (auto) 3.02 Nucleated RBC % 0 Sodium 138 Potassium 3.8 Chloride 104 Carbon Dioxide 29.0 Anion Gap 5 BUN 9 Creatinine 0.88 Estim Creat Clear Calc 94.20 Est GFR (MDRD) Af Amer 87 Est GFR (MDRD) Non-Af 72 BUN/Creatinine Ratio 10.2 Glucose 161 H Calcium 9.2 Troponin I High Sens < 3 L EKG Initial EKG: Attestation: I personally reviewed and interpreted this EKG as follows: Interpretation: Sinus Rhythm (Sinus rhythm rate of 94 and normal. TX interval is 128 ms. QRS duration 74 ms. QT duration 3 and 52 ms. [place] is normal. There are no findings to suggest WPW, [place] long [place] syndrome etc.) Treatment and Re-Evaluation :: Patient was informed of her laboratory results and findings. Patient was discharged to home in stable condition. She was given opportunity ask questions and none were asked. Suspect this is due to hypovolemia compounded by the fact that she has longstanding diabetes and probably has a component of autonomic dysfunction. Discharge Plan Triage Chief Complaint: Syncope ED Provider: Sergio Jones Dx/Rx/DC Orders Clinical Impression: Orthostatic hypotension, Anxiety and depression, Seizure disorder, Autonomic dysfunction with type 2 diabetes mellitus Instructions: ED Hypotension, Orthostatic Prescriptions: No Action glimepiride 4 mg tablet 4 mg PO DAILY naproxen 500 mg tablet 500 mg PO BID PRN (Reason: pain) Qty: 20 0RF Trintellix 5 mg tablet 5 mg PO DAILY Qty: 30 0RF lisinopril 5 mg tablet 5 mg PO DAILY Qty: 30 0RF bupropion HCl 150 mg tablet extended release 24 hr 150 mg PO DAILY benzonatate 100 mg capsule 200 mg PO TID PRN (Reason: cough) Qty: 30 0RF cetirizine [Zyrtec] 10 mg tablet 10 mg PO DAILY PRN (Reason: allergy symptoms) Qty: 30 0RF zolpidem [Ambien] 5 mg tablet 5 mg PO DAILY ondansetron 4 mg tablet,disintegrating 4 mg PO Q6H PRN PRN (Reason: Nausea) Qty: 10 0RF ondansetron HCl 8 mg tablet 8 mg PO Q8H PRN (Reason: nausea and vomiting) Qty: 20 0RF rizatriptan 10 mg tablet,disintegrating 10 mg PO ONCE Qty: 30 0RF carbamazepine 200 mg tablet extended release 12 hr 200 mg PO ONCE 30 Days Qty: 30 0RF Primary Care Provider: Floresita Alvarez NP Referrals: Floresita Alvarez NP, [facility] [Primary Care Provider] - 5-7 Days Print Language: Israeli Disposition Disposition: Home, Self Care
--- NOTE | 2024-10-18 09:00 | ED.RN ---
PT ASKED THIS NURSE TO CALL HER MOTHER AND LET HER KNOW SHE IS HERE AND WHY. PT DID NOT HVE HER PHONE WITH HER. I OFFERED HER OUT CORDLESS PHONE BUT PT PREFERRED THIS NURSE CALL.
[2024-10-18 09:02] LABS: Anion Gap 5 (5-15); BUN 9 mg/dL (7-18); BUN/Creat Ratio 10.2 RATIO (10-20); Calcium,Total 9.2 mg/dL (8.5-10.1); Chloride 104 mmol/L (98-107); Creatinine, Serum 0.88 mg/dL (0.55-1.02); EST Glomerular Filtration Rate 72 mL/min (>60); Est Glom Filt Rate - Afr Amer 87 mL/min (>60); Glucose 161 mg/dL (74-106); Potassium 3.8 mmol/L (3.5-5.1); Sodium Level 138 mmol/L (136-145); Troponin-I HS < 3 pg/mL (3.0-54.0)
[2024-10-18] MEDS: 0.9% Normal Saline (1000mL) 1,000 ML 1000 ML IV (10:29)
== END 2024-10-18 14:12 | disposition home or self-care (01) ==
PROVIDERS: Emergency Provider Emergency Medicine; PCP Nurse Practitioner Family; Visit Provider Emergency Medicine
DX: I95.1 Orthostatic hypotension (principal); G40.909 Epilepsy, unspecified, not intractable, without status epilepticus; E11.43 Type 2 diabetes mellitus with diabetic autonomic (poly)neuropathy; F32.A Depression, unspecified; I10 Essential (primary) hypertension; F41.9 Anxiety disorder, unspecified; Z79.84 Long term (current) use of oral hypoglycemic drugs; Z79.899 Other long term (current) drug therapy; Z86.16 Personal history of COVID-19
CPT/HCPCS: 80048; 84484; 85025; 93005; 96360; 96361; 99285; A4216

== ENCOUNTER 2025-10-03 08:15 | Emergency (ER) | payer MEDICAID, SELFPAY ==
[2025-10-03 08:16] VITALS: BP 144/77; PULSE 89; RESP 18; TEMP 36.4; O2SAT 100; BMI 46.1
--- NOTE | 2025-10-03 08:59 | EKG12_ITS ---
Test Reason : GENERAL Blood Pressure : */* mmHG Vent. Rate : 80 BPM Atrial Rate : 80 BPM P-R Int : 136 ms QRS Dur : 80 ms QT Int : 388 ms P-R-T Axes : 49 47 51 degrees QTcB Int : 447 ms Normal sinus rhythm Normal ECG Confirmed by SOBIA KEMP, CRYSTAL ([id number]), graphics editor JESS RAIN ([id number]) on 10/04/2025 9:15:46 AM Referred By: Confirmed By: CRYSTAL RAMSAY MD
--- NOTE | 2025-10-03 09:00 | EDS_ITS ---
HPI History of Present Illness Chief Complaint: General Illness Informant: patient Onset/Context/Timing Onset: Weeks Context: Gradual Onset Timing: Continuous Current Severity: Mild Maximum Severity: Mild Narrative Narrative: 50-year-old female history of diabetes hypertension seizure disorder. Prior cholecystectomy. States I have been ill for weeks. Nausea vomiting last night. Dry heaves. She said shakes. She was seen at the [facility] clinic last Thursday. Diagnosed with influenza. Placed on Zofran she says really not doing that much for her nausea. She denies diarrhea. She denies chest pain or abdominal pain. She denies shortness of breath. Prior similar symptoms: Yes Recent Illness/Hospitalization: No [facility] Medical History COVID-19 UTI (urinary tract infection) Hx of migraine headaches Gastroenteritis Urinary tract infection with hematuria Acute frontal sinusitis, unspecified Seizures Migraines Diabetes HTN (hypertension) Home Medications ?Medication ?Instructions ?Recorded ?Last Taken ?Type glimepiride 4 mg tablet 4 mg PO DAILY 07/28/22 Unkno wn History rizatriptan 10 mg disintegrating 10 mg PO ONCE #30 tab s 12/23/22 Unknown Rx tablet naproxen 500 mg tablet 500 mg PO BID PRN pain #20 t abs 12/30/22 Unknown Rx lisinopril 5 mg tablet 5 mg PO DAILY #30 tabs 01/21 Unknown Rx vortioxetine 5 mg tablet 5 mg PO DAILY #30 tabs 01/21 Unknown Rx (Trintellix) benzonatate 100 mg capsule 200 mg (2 x 100 mg) PO TID PRN 01/23/23 Unknown Rx cough #30 caps bupropion HCl 150 mg 24 hr tablet, 150 mg PO DAILY Unknown History extended release carbamazepine 200 mg 200 mg PO ONCE 30 days #30 t abs 02/05/23 Unknown Rx tablet,extended release,12 hr cetirizine 10 mg tablet (Zyrtec) 10 mg PO DAILY PRN al lergy 05/08/23 Unknown Rx symptoms #30 tabs ondansetron HCl 8 mg tablet 8 mg PO Q8H PRN nausea and 06/02/24 Unknown Rx vomiting #20 tabs ondansetron 4 mg disintegrating 4 mg PO Q6H PRN PRN Na usea #10 tabs 07/04/24 Unknown Rx tablet zolpidem 5 mg tablet (Ambien) 5 mg PO DAILY sleep 06/10 05/02 Unknown History Allergy/AdvReac Type Severity Reaction Status Date / Time Penicillins AdvReac Vomiting Verified 10/03/25 08:19 Family History Mother Anxiety Depression Grandfather Cancer myocardial Hypertension Diabetes Heart disease Grandmother Hypertension Heart disease Cancer Father COPD (chronic obstructive pulmonary disease) Grandmother Breast cancer Surgical History Hx of cholecystectomy History of endometrial ablation Social History household members: none housing: apartment current occupational status: employed current occupation: [employer] sexually active: Yes Smoking Status: Never smoker Electronic Cigarette Use: not used alcohol intake: former substance use type: does not use what type of physical activity do you participate in: walking frequency: 3-4 times per week seatbelt use: always do you feel safe at home: Yes additional social history: Single ROS ROS ED ROS Narrative Nausea. Constitutional Constitutional ED: Reports chills; Denies fever(s) Eyes Eyes: Denies blurry vision ENT ENT ED: Denies ear pain Cardiovascular Cardiovascular: Denies chest pain Respiratory/Chest Respiratory/Chest: Reports cough Gastrointestinal Gastrointestinal: Denies abdominal pain Genitourinary Genitourinary ED: Denies dysuria or hematuria Musculoskeletal Musculoskeletal: Denies arthralgias Integumentary Denies abscess Neurologic Neurologic: Denies headache(s) Psychiatric Psychiatric: Denies anxiety or depression Endocrine Endocrinology: Denies cold intolerance Hematologic/Lymphatic Hematologic/Lymphatic: Reports none Allergic/Immunologic Allergic/Immunologic ED: Denies mouth swelling, tongue swelling or urticaria EXAM Physical Exam Narrative Exam Narrative: 50-year-old female lying in bed vital signs stable afebrile. Pulse ox 100% on room air no signs of hypoxia. H EENT exam pupils round react light. Dry mucous membranes. Neck nontender no lymphadenopathy. No meningismus. Back nontender. Lungs clear to auscultation bilaterally. Heart regular rhythm rate about 90 no murmur. Chest wall and ribs nontender. Abdomen soft nontender. No peritoneal signs. Patient moving all 4 extremities. Normal strength. Normal dorsi donald ntarflexion. Nontender no edema. No rashes. Neurologically she is awake alert. Answering questions and following commands. Const Vital Signs: 10/03/25 08:16 10/03/25 08:19 10/03/25 10:42 Temperature 97.6 F L Temperature Source Oral Pulse Rate 89 82 Respiratory Rate 18 Respiratory Effort Normal Respiratory Pattern Normal Blood Pressure 144/77 H Blood Pressure Mean 99 Pulse Ox 100 98 Oxygen Delivery Method Room Air Room Air 10/03/25 12:00 Temperature Temperature Source Pulse Rate 88 Respiratory Rate 14 Respiratory Effort Respiratory Pattern Blood Pressure 159/85 H Blood Pressure Mean 109 Pulse Ox 98 Oxygen Delivery Method Room Air MDM MDM MDM Narrative Medical decision making narrative: 50-year-old female says she does not feel well. States she was diagnosed with influenza a week ago at the clinic. She was given Zofran as it is not covering her nausea. Screening labs will be obtained. Patient's exam is benign. She will be treated with a liter normal saline because clinically that she looks mildly dehydrated. Given Reglan for nausea. Repeat exam patient is doing well at 1:27 PM. She is having additional nausea show given another dose of Reglan and discharged home. Her exam is benign and her workups negative we have gone over test results. Outpatient follow-up. History & Record Review Discussion w/independent historian: Patient Additional record(s) reviewed:: Prior inpatient record, Prior outpatient record, Prior ED visit and Prior labs Lab Data Attestation: I reviewed the patient's lab results. Lab results narrative: CBC shows a normal white count 7.5. H&H 14 and 41. Platelets 233. Chemistries show gap 14. BUN and creatinine 8 and 0.6. Glucose 169. Discussed liver enzymes unremarkable. UA unremarkable. No nitrates. No white or red cells. Only rare bacteria. Labs: Laboratory Results - last 24 hr 10/03/25 10/03/25 09:20 11:06 WBC 7.5 RBC 4.60 Hgb 14.8 Hct 41.4 MCV 90.0 MCH 32.2 H MCHC 35.7 RDW Std Deviation 39.4 RDW Coeff of Kenna 12.0 Plt Count 233 MPV 8.9 Immature Gran % (Auto) 0.300 Neut % (Auto) 61.8 Lymph % (Auto) 31.9 [place] % (Auto) 5.2 Eos % (Auto) 0.7 Baso % (Auto) 0.1 Absolute Neuts (auto) 4.7 Absolute Lymphs (auto) 2.40 Nucleated RBC % 0 Sodium 139 Potassium 4.3 Chloride 109 H Carbon Dioxide 17.1 L Anion Gap 14 BUN 8 Creatinine 0.67 L Estim Creat Clear Calc 128.00 Est GFR (MDRD) Non-Af 106 BUN/Creatinine Ratio 11.5 Glucose 169 H Calcium 7.8 Total Bilirubin 0.49 AST 22 ALT 10 Alkaline Phosphatase 89 Total Protein 6.2 Albumin 3.4 L Globulin 2.8 Albumin/Globulin Ratio 1.2 Urine Color Yellow Urine Clarity Clear Urine pH 6.5 Ur Specific [place] 1.010 Urine Protein 15 H Urine Glucose (UA) Normal Urine Ketones 15 H Urine Occult Blood Negative Urine Nitrite Negative Urine Bilirubin Negative Urine Urobilinogen Normal Ur Leukocyte Esterase Negative Urine RBC 0 SEEN Urine WBC 0 SEEN Ur Squamous Epith Cells 0-5 SEEN Urine Bacteria RARE Urine Mucus 0 SEEN Rhythm Strip Rhythm Strip: Sinus Rhythm Rate: 80 Ectopy: None EKG Initial EKG: Attestation: I personally reviewed and interpreted this EKG as follows: Interpretation: No Acute Injury Pattern Comments: Normal sinus rhythm rate 80 no acute signs of [place] or ischemia. Discharge Plan Triage Chief Complaint: General Illness ED Provider: Enoc Sánchez Dx/Rx/DC Orders Prescriptions: No Action glimepiride 4 mg tablet 4 mg PO DAILY naproxen 500 mg tablet 500 mg PO BID PRN (Reason: pain) Qty: 20 0RF Trintellix 5 mg tablet 5 mg PO DAILY Qty: 30 0RF lisinopril 5 mg tablet 5 mg PO DAILY Qty: 30 0RF bupropion HCl 150 mg tablet extended release 24 hr 150 mg PO DAILY benzonatate 100 mg capsule 200 mg PO TID PRN (Reason: cough) Qty: 30 0RF cetirizine [Zyrtec] 10 mg tablet 10 mg PO DAILY PRN (Reason: allergy symptoms) Qty: 30 0RF zolpidem [Ambien] 5 mg tablet 5 mg PO DAILY ondansetron 4 mg tablet,disintegrating 4 mg PO Q6H PRN PRN (Reason: Nausea) Qty: 10 0RF ondansetron HCl 8 mg tablet 8 mg PO Q8H PRN (Reason: nausea and vomiting) Qty: 20 0RF rizatriptan 10 mg tablet,disintegrating 10 mg PO ONCE Qty: 30 0RF carbamazepine 200 mg tablet extended release 12 hr 200 mg PO ONCE 30 Days Qty: 30 0RF Primary Care Provider: Lia Leger Referrals: Floresita Alvarez SHEEPSKIN PICKLER, SHEEPSKIN PICKLER-[facility] [Non-Staff, Medical] Print Language: Bulgarian
[2025-10-03] MEDS: 0.9% Normal Saline (1000mL) 1,000 ML 1000 ML IV (09:09)
[2025-10-03 09:31] LABS: Hematocrit 41.4 % (37-47); Hemoglobin 14.8 g/dL (12.0-15.0); Immature Granulocytes Count 0.020 X10^3/uL (0.0-0.0); Mean Corp Hgb Conc 35.7 g/dL (32-36); Mean Corpuscular Volume 90.0 fL (81-99); Mean Platelet Vol. 8.9 fl (6.2-12.0); NRBC Flagged by Analyzer 0 % (0-5); Platelet Count 233 K/mm3 (150-450); RBC Distribution Width CV 12.0 % (11.6-14.6); RBC Distribution Width SD 39.4 fl (35.1-43.9); Red Blood Count 4.60 M/mm3 (4.2-5.4); White Blood Count 7.5 K/mm3 (4.4-11.0)
[2025-10-03 10:38] LABS: AST(SGOT) 22 U/L (<=31); Alanine Aminotransfer ALT/SGPT 10 U/L (<=34); Albumin, Serum 3.4 g/dL (3.5-5.0); Alkaline Phosphatase 89 U/L (35-104); Anion Gap 14 (5-15); BUN 8 mg/dL (4-19); BUN/Creat Ratio 11.5 RATIO (10-20); Calcium,Total 7.8 mg/dL (7.6-11.0); Carbon Dioxide 17.1 mmol/L (21.0-32.0); Chloride 109 mmol/L (98-108); Estimated Creatinine Clearance 128.00 ml/min (50-250); Globulin 2.8 g/dL (2.2-4.2); Glucose 169 mg/dL (70-99); Potassium 4.3 mmol/L (3.3-5.1)
[2025-10-03 10:42] VITALS: PULSE 82; O2SAT 98
[2025-10-03 11:09] LABS: Mucous, Urine 0 SEEN /hpf (<or=2+); Red Blood Cells-Urine 0 SEEN /hpf (0-5)
[2025-10-03 11:10] LABS: Color, Urine Yellow (Yellow); Glucose, Dipstick Normal (Normal); Ketone-Dipstick 15 mg/dl (Negative); Leukocyte Esterase-Dipstick Negative /ul (Negative); Nitrite-Dipstick Negative (Negative); Occult Blood-Urine Negative /ul (Negative); Protein-Dipstick 15 mg/dl (Negative); Specific Gravity, Urine 1.010 (1.002-1.030); Urine Bilirubin Dipstick Negative (Negative)
[2025-10-03 11:17] LABS: Squamous Epithelial Cells - UA 0-5 SEEN /hpf (5-10)
[2025-10-03 12:00] VITALS: BP 159/85; PULSE 88; RESP 14; O2SAT 98
--- NOTE | 2025-10-03 12:15 | ED.RN ---
pt states i feel like im about to have one of my seizures, i havent taken my meds today. per dr. alcantara ok for pt to take home Tegretol prescription.
[2025-10-03 14:32] VITALS: BP 163/83; PULSE 83; RESP 18; TEMP 36.6; O2SAT 99
== END 2025-10-03 14:33 | disposition home or self-care (01) ==
PROVIDERS: Emergency Provider Emergency Medicine; PCP Nurse Practitioner Family; Visit Provider Emergency Medicine
DX: J11.1 Influenza due to unidentified influenza virus with other respiratory manifestations (principal); E11.9 Type 2 diabetes mellitus without complications; E86.0 Dehydration; I10 Essential (primary) hypertension; Z79.84 Long term (current) use of oral hypoglycemic drugs; Z79.899 Other long term (current) drug therapy; Z86.16 Personal history of COVID-19
CPT/HCPCS: 80053; 81001; 85025; 93005; 96361; 96374; 96375; 99283; A4216